=== PATIENT | female | born 1975 | race Two or more races ===

== ENCOUNTER 2025-06-11 23:08 | Emergency (ER) | payer OTHER ==
[~2025-06-11] VITALS: Ht 154.9 cm; Wt 85.3 kg
[2025-06-12 00:55] VITALS: BP 116/69; PULSE 110; RESP 19; TEMP 98.5; O2SAT 97
[2025-06-12] MEDS: HYDROcodone-ACET 5/325MG TAB PO ONE (00:55)
[2025-06-12] MEDS: CLINDAMYCIN 900MG IV 50 ML IV ONE (01:00)
[2025-06-12 01:19] LABS: Hematocrit 45.5 % (36.0-46.0); Hemoglobin 15.4 g/dL (12.2-16.2); Mean Corpuscular Hemoglobin 28.4 pg (28.0-32.0); Mean Corpuscular Volume 84.0 fL (80.0-100.0); Nucleated Red Blood Cells % 0.1 %
[2025-06-12] MEDS ORDERED: CLIN1CAP70 PO (01:24)
[2025-06-12] MEDS ORDERED: IBUP-1456 PO (01:24)
--- NOTE | 2025-06-12 01:24 | ED.PDOC ---
History of Present Illness(SKN HPI Comments PT CAME TO THE ER WITH CC OF INSECT BITE, PT THINKS THAT IT HAPPENED LAST NIGHT. TODAY AROUND 1600 SITE WAS SWOLLEN AND BEGAN TO BLISTER, PT MARKED THE AREA 4IN X 3IN, SWELLING AND REDNESS HAVE INCREASED TO 7 IN X 5IN. PT IS A&OX4 RR EVEN AND REGULAR NO DISTRESS NOTED AT THIS TIME. 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 History Family History Family History: Unknown Social History Smoker: Non-Smoker Alcohol: Denies ETOH Use Drugs: Denies Drug Use All Other Systems: Reviewed and Negative (see hpi) Physical Exam General Appearance: No Apparent Distress, Normal HEENT: Pharynx Normal Neck: Full Range of Motion, Non-Tender Respiratory: Lungs Clear, No Respiratory Distress, Normal Breath Sounds Cardiovascular: No Edema, No JVD, No Murmur, No Gallop, Normal Peripheral Pulses, Regular Rate/Rhythm Breast Exam: Deferred Gastrointestinal: No Organomegaly, Non Tender, No Pulsatile Mass, Normal Bowel Sounds, Soft Genitalia: Deferred Pelvic: Deferred Rectal: Deferred Extremities: Normal capillary refill, Normal range of motion, No pedal edema Musculoskeletal : Apperance: Normal Neurologic: Alert, No Motor Deficits, Normal Affect, Normal Mood, No Sensory Deficits Cerebellar Function: Normal Reflexes: NOT DONE Skin: Dry, Normal Color, Warm, Wounds (Approximate 3 in x 3 in erythemic patch with centered quarter size blister start intact. Warmth to touch no noted drainage no noted streaking strength sensory motion intact) Lymphatic: No Adenopathy Was a procedure done? Was a procedure done?: No Differential Diagnosis (INTG) Differential Diagnosis: Cellulitis, Hematoma, Insect Envenomation, Puncture W ound Differential Diagnosis: Abscess X-Ray, Labs, Meds, VS Vital Signs Date Time Temp Pulse Resp B/P (MAP) Pulse Ox O2 Delivery O2 Flow Rate FiO2 06/12/25 00:55 98.5 110 19 116/69 (85) 97 98.5 06/12/25 00:55 110 97 Room Air 06/11/25 23:10 98.7 123 18 131/65 96 98.7 Lab Test 06/12/25 00:50 Range/Units White Blood Count 9.5 4.4-10.8 10^3/uL Red Blood Count 5.42 H 4.0-5.20 10^6/uL Hemoglobin 15.4 12.2-16.2 g/dL Hematocrit 45.5 36.0-46.0 % Mean Corpuscular Volume 84.0 80.0-100.0 fL Mean Corpuscular Hemoglobin 28.4 28.0-32.0 pg Mean Corpuscular Hemoglobin Concent 33.8 32.0-36.0 g/dL Red Cell Distribution Width 13.3 11.8-14.3 % Platelet Count 343 140-450 10^3/uL Mean Platelet Volume 7.9 6.9-10.8 fL Neutrophils (%) (Auto) 55.4 37.0-80.0 % Lymphocytes (%) (Auto) 33.6 10.0-50.0 % Monocytes (%) (Auto) 7.2 0.0-12.0 % Eosinophils (%) (Auto) 3.2 0.0-7.0 % Basophils (%) (Auto) 0.6 0.0-2.0 % Neutrophils # (Auto) 5.3 1.6-8.6 10 ^3/uL Lymphocytes # (Auto) 3.2 0.4-5.4 10 ^3/uL Monocytes # (Auto) 0.7 0-1.3 10 ^3/uL Eosinophils # (Auto) 0.3 0-0.8 10 ^3/uL Basophils # (Auto) 0.1 0-0.2 10 ^3/uL Nucleated Red Blood Cells 0.1 % Current Medications Medications (Trade) Dose Ordered Sig/Joni Route Start Time Stop Time Status Last Admin Clindamycin Phosphate 50 ml @ 50 mls/hr ONCE ONCE IV 06/12/25 00:45 10/5/25 01:44 06/12/25 01:00 Dexamethasone Sodium Phosphate (Decadron Injection) 10 mg ONCE ONCE IV 06/12/25 00:45 06/12/25 00:46 DC 06/12/25 01:00 Acetaminophen/ Hydrocodone Bitart ([place] 5/325MG Tab) 1 tab ONCE ONCE PO 06/12/25 00:45 06/12/25 00:46 DC 06/12/25 00:55 X-Ray, Labs, Meds, VS Comment Patient CBC within normal limits no white count. Patient given clindamycin 900 mg IV piggyback and Decadron 10 mg IV cover possible allergy however since likely infection. We will script trial of clindamycin advised to take medication as prescribed side effects discussed. Advised to monitor the redness and for fevers and chills weakness nausea or vomiting return to the ER immediately. Wound re-evaluation in two days at urgent care PCP or back here in the ER. Advised on ER return precautions patient and has been indicate understanding and agree with discharge plan of care. Time of 1ST Reevaluation: 23:20 Reevaluation 1ST: Unchanged Time of 2ND Reevaluation: 01:42 Reevaluation 2ND: Improved Patient Education/Counseling: Diagnosis, Treatment, Prognosis, Need For Follow Up Family Education/Counseling: Diagnosis, Treatment, Prognosis, Need For Follow Up SEPSIS Sepsis Screen Date sepsis recognized/suspect: Jun 11, 2025 Time Sepsis recognized/suspect: 2314 Recent Procedure: No On Antibiotic Therapy: No Respiratory Rate >20: No Heart Rate >90: Yes Temp<36 C (96.8 F) or >38.3 C: No SBP <90 or MAP <65 mmHG: No New Acute Mental Status Change: No Is the patient on CPAP, BIPAP,: No Physician Orders Clindamycin 900mg Iv (Cleocin Iv) (06/12/25 00:45) Vital Signs Date Time Temp Pulse Resp B/P (MAP) Pulse Ox O2 Delivery O2 Flow Rate FiO2 06/12/25 00:55 98.5 110 19 116/69 (85) 97 98.5 06/12/25 00:55 110 97 Room Air 06/11/25 23:10 98.7 123 18 131/65 96 98.7 Laboratory Tests Test 06/12/25 00:50 White Blood Count 9.5 10^3/uL (4.4-10.8) Medications Medications Dose Ordered Sig/Joni Route Start Time Stop Time Status Last Admin Dose Admin Acetaminophen/ Hydrocodone Bitart 1 tab ONCE ONCE PO 06/12/25 00:45 06/12/25 00:46 DC 06/12/25 00:55 Clindamycin Phosphate 50 ml @ 50 mls/hr ONCE ONCE IV 06/12/25 00:45 06/12/25 01:44 06/12/25 01:00 Dexamethasone Sodium Phosphate 10 mg ONCE ONCE IV 06/12/25 00:45 06/12/25 00:46 DC 06/12/25 01:00 Departure 1 Departure Time of Disposition: 01:42 Impression: Primary Impression: Brown recluse spider bite Qualified Codes: T63.331A - Toxic effect of venom of brown recluse spider, accidental (unintentional), initial encounter Disposition: 01 HOME / SELF CARE / HOMELESS Condition: Stable e-Prescriptions Ibuprofen (Ibuprofen) 800 Mg Tab 800 MG PO Q8HP PRN for 6 Days, #18 TAB Prov: LINDSAY LIND 06/12/25 Clindamycin Hcl (Clindamycin Hcl) 300 Mg Cap 300 MG PO QID for 7 Days, #28 CAP Prov: LINDSAY LIND 06/12/25 Discharged With: Spouse Critical Care Note Critical Care Time?: No Stability Stability form required: LINDSAY Box Jun 12, 2025 01:24
[2025-06-13] MEDS ORDERED: ACE3T PO (00:58)
[2025-06-13] MEDS ORDERED: PRED20TA2 PO (00:58)
== END 2025-06-12 02:01 | disposition home or self-care (01) ==
LOC: ER 23:08
DX: T63.331A Toxic effect of venom of brown recluse spider, accidental (unintentional), initial encounter (principal); Z79.899 Other long term (current) drug therapy; Y92.89 Other specified places as the place of occurrence of the external cause
CPT/HCPCS: 36415; 85025; 96365; 96375; 99284; J1100; J3490

== ENCOUNTER 2025-06-12 22:22 | Emergency (ER) | payer OTHER ==
[~2025-06-12] VITALS: Ht 162.6 cm; Wt 85.6 kg
[~2025-06-12 22:22] MED LIST: CLIN1CAP70 PO; IBUP-1456 PO
[2025-06-13] MEDS ORDERED: ACE3T PO (00:58)
[2025-06-13] MEDS ORDERED: PRED20TA2 PO (00:58)
--- NOTE | 2025-06-13 00:58 | ED.PDOC ---
History of Present Illness(SKN HPI Comments 49-year-old female presents to ER with complaints of insect bite x2 days. Patient reports that she has been experiencing redness/swelling and itching/burning pain to right leg from a "possible spider bite" x 2 days. Notes she was seen/discharged in ER here yesterday for her symptoms and notes the swelling/redness did subside some but the pain increased prompting her to come back to ER. She rates her current pain a 7/10 and notes she currently is taking clindamycin as prescribed. Patient presents to ER ambulatory on arrival, with steady gait, in no distress with vitals stable. Denies fever, body aches, chills, night sweats, nausea/vomiting, headache, calf pain, chest pain or any further symptoms/complaints Chief Complaint: Insect Bite Time Seen by MD: 23:03 Primary Care Provider: UNKNOWN History of Present Illness: Nurses Notes, Medications, Allergies Allergies: Coded Allergies: NO KNOWN ALLERGIES (Unverified , 06/12/25) Home Meds Active Scripts Acetaminophen W/ Codeine (Tylenol W/Cod #3) 1 Tab Tb, 1 TAB PO Q6HPRN, #10 TAB 0 Refills Prov:SAEID YOON 06/13/25 Prednisone (Prednisone) 20 Mg Tab, 20 MG PO BID for 5 Days, #10 TAB 0 Refills Prov:SAEID YOON 06/13/25 Ibuprofen (Ibuprofen) 800 Mg Tab, 800 MG PO Q8HP PRN for 6 Days, #18 TAB Prov:LINDSAY LIND 06/12/25 Clindamycin Hcl (Clindamycin Hcl) 300 Mg Cap, 300 MG PO QID for 7 Days, #28 CAP Prov:LINDSAY LIND 06/12/25 Information Source: Patient Mode of Arrival: Ambulatory Tetanus: UTD Past Medical History PAST MEDICAL HISTORY: Denies Surgical History: Denies all surgeries 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 Pertinent ROOF TILE LAYER History Family History Family History: Unknown Social History Smoker: Non-Smoker Alcohol: Denies ETOH Use Drugs: Denies Drug Use Lives In: Home Constitutional: denies: chills, diaphoresis, fatigue, fever, malaise, sweats, weakness, others EENTM: denies: blurred vision, double vision, ear bleeding, ear discharge, ear drainage, ear pain, ear ringing, eye pain, eye redness, hearing loss, mouth pain, mouth swelling, nasal discharge, nose bleeding, nose congestion, nose pain, photophobia, tearing, throat pain, throat swelling, voice changes, others Respiratory: denies: cough, hemoptysis, orthopnea, SOB at rest, shortness of breath, SOB with excertion, stridor, wheezing, others Cardiovascular: denies: chest pain, dizzy spells, diaphoresis, Dyspnea on exertion, edema, irregular heart beat, left arm pain, lightheadedness, palpitations, PND, syncope, others Gastrointestinal: denies: abdomen distended, abdominal pain, blood streaked bowels, constipated, diarrhea, dysphagia, difficulty swallowing, hematemesis, melena, nausea, poor appetite, poor fluid intake, rectal bleeding, rectal pain, vomiting, others Genitourinary: denies: abnormal vagina bleeding, burning, dyspareunia, dysuria, flank pain, frequency, hematuria, incontinence, pain, , vagina discharge, urgency, others Neurological: denies: dizziness, fainting, headache, left sided numbness, left sided weakness, numbness, paresthesia, pre-existing deficit, right sided numbness, right sided weakness, seizure, speech problems, tingling, tremors, weakness, others Musculoskeletal: denies: back pain, gout, joint pain, joint swelling, muscle pain, muscle stiffness, neck pain, others Integumetry: reports: others (As stated in HPI) Allergic/Immunocompromised: reports: others (As stated in HPI) Hematologic/Lymphatic: denies: anemia, blood clots, easy bleeding, easy bruising, swollen glands, others Endocrine: denies: excessive hunger, excessive sweating, excessive thirst, excessive urination, flushing, intolerance to cold, intolerance to heat, unexplained weight gain, unexplained weight loss, others Psychiatric: denies: anxiety, bipolar disorder, depression, hopeless, panic disorder, schizophrenia, sleepless, suicidal, others Physical Exam General Appearance: No Apparent Distress, Obese HEENT: PERRL/EOMI Neck: Full Range of Motion, Non-Tender, Normal Respiratory: Chest Non-Tender, Lungs Clear, No Accessory Muscle Use, No Respiratory Distress, Normal Breath Sounds Cardiovascular: No Murmur, No Gallop, Regular Rate/Rhythm Breast Exam: Deferred Gastrointestinal: NOT DONE Genitalia: Deferred Pelvic: Deferred Rectal: Deferred Extremities: No calf tenderness, Normal capillary refill, Normal range of motion Neurologic: Alert, No Motor Deficits, Normal Affect, Normal Mood, No Sensory Deficits Cerebellar Function: Normal Reflexes: Normal Skin: Dry, Warm, Other (Healing [id number] wound to right thigh noted with mild surronding swelling/erythema. No fluctuance/red streaking/further skin changes noted) Lymphatic: No Adenopathy Was a procedure done? Was a procedure done?: No Sedation Sedation?: No Differential Diagnosis (INTG) Differential Diagnosis: Abscess Differential Diagnosis: Neurovascular Injury Abscess: Gas Gangrene Differential Diagnosis: Osteomyelitis, Retained Foreign Body X-Ray, Labs, Meds, VS Vital Signs Date Time Temp Pulse Resp B/P (MAP) Pulse Ox O2 Delivery O2 Flow Rate FiO2 06/13/25 01:11 98.8 87 18 129/86 (100) 97 98.8 06/12/25 22:30 98.2 87 18 124/80 95 98.2 Current Medications Medications (Trade) Dose Ordered Sig/Joni Route Start Time Stop Time Status Last Admin Acetaminophen/ Codeine Phosphate (Tylenol W/Cod #3 Tablet) 1 tab ONCE ONCE PO 06/13/25 01:00 06/13/25 01:01 DC 06/13/25 01:10 Previous chart visit reviewed Tylenol # three one tablet p.o. ordered Rocephin 1 g IM ordered Wound care/cleaning discussed and advised Advised to continue clindamycin as currently prescribed Advised to follow up with PCP in 1-2 days Patient verbalized understanding and agreeable with current plan of care Advised to return to ER immediately if symptoms worsen Time of 1ST Reevaluation: 00:24 Reevaluation 1ST: N/A Patient Education/Counseling: Diagnosis, Treatment, Prognosis, Need For Follow Up Family Education/Counseling: No Family Present SEPSIS Sepsis Screen Date sepsis recognized/suspect: Jun 12, 2025 Time Sepsis recognized/suspect: 2234 Recent Procedure: No On Antibiotic Therapy: Yes Respiratory Rate >20: No Heart Rate >90: No Temp<36 C (96.8 F) or >38.3 C: No SBP <90 or MAP <65 mmHG: No New Acute Mental Status Change: No Is the patient on CPAP, BIPAP,: No Physician Orders Ceftriaxone Sodium (Rocephin) (06/13/25 01:15) Vital Signs Date Time Temp Pulse Resp B/P (MAP) Pulse Ox O2 Delivery O2 Flow Rate FiO2 06/13/25 01:11 98.8 87 18 129/86 (100) 97 98.8 06/12/25 22:30 98.2 87 18 124/80 95 98.2 Medications Medications Dose Ordered Sig/Joni Route Start Time Stop Time Status Last Admin Dose Admin Acetaminophen/ Codeine Phosphate 1 tab ONCE ONCE PO 06/13/25 01:00 06/13/25 01:01 DC 06/13/25 01:10 Departure 1 Departure Time of Disposition: 00:52 Impression: Primary Impression: Cellulitis of right leg Additional Impression: Insect bite of right leg Qualified Codes: S80.861A - Insect bite (nonvenomous), right lower leg, initial encounter; W57.XXXA - Bitten or stung by nonvenomous insect and other nonvenomous arthropods, initial encounter Disposition: 01 HOME / SELF CARE / HOMELESS Condition: Stable e-Prescriptions Acetaminophen W/ Codeine (Tylenol W/Cod #3) 1 Tab Tb 1 TAB PO Q6HPRN, #10 TAB 0 Refills Prov: SAEID YOON 06/13/25 Prednisone (Prednisone) 20 Mg Tab 20 MG PO BID for 5 Days, #10 TAB 0 Refills Prov: SAEID YOON 06/13/25 Discharged With: Self Critical Care Note Critical Care Time?: No Stability Stability form required: No Heart Score Heart Score: Heart Score Response (Comments) Value History N/A 0 EKG N/A 0 Age N/A 0 Risk Factors N/A 0 Troponin N/A 0 Total 0 SAEID YOON Jun 13, 2025 00:58
[2025-06-13] MEDS: ACETAMINOPHEN/CODEINE#3 (300/30mg) TAB PO ONE (01:10)
[2025-06-13 01:11] VITALS: BP 129/86; PULSE 87; RESP 18; TEMP 98.8; O2SAT 97
[2025-06-13] MEDS: cefTRIAXone SOD 1,000 MG VL IM ONE (01:19)
== END 2025-06-13 01:27 | disposition home or self-care (01) ==
LOC: ER 22:22
DX: S80.861A Insect bite (nonvenomous), right lower leg, initial encounter (principal); L03.115 Cellulitis of right lower limb; Z79.899 Other long term (current) drug therapy; Z79.52 Long term (current) use of systemic steroids; W57.XXXA Bitten or stung by nonvenomous insect and other nonvenomous arthropods, initial encounter; Y93.89 Activity, other specified; Y92.89 Other specified places as the place of occurrence of the external cause; Y99.8 Other external cause status
CPT/HCPCS: 96372; 99283; J0696